=== PATIENT | male | born 1990 | race Caucasian/White ===

== ENCOUNTER 2016-06-16 13:58 | Emergency (ER) | payer OTHER ==
[~2016-06-16] VITALS: Ht 170.2 cm; Wt 68.0 kg
[2016-06-16] MEDS ORDERED: IBUP80TA PO (17:10)
--- NOTE | 2016-06-16 17:47 | REP ---
Scrotal sonography: History: Right testicular pain. Findings: High-resolution bilateral scrotal sonography shows no evidence of intratesticular mass on either side. Right testis measures 4.6 x 2.4 x 2.9 cm. Left testicular dimensions are 4.1 x 1.9 x 2.5 cm. There is a cyst in the epididymis on the left measuring 5 x 6 x 9 mm. Small bilateral hydroceles are seen, left greater than right. Testicular Doppler flow is normal bilaterally. Resistive indices are 0.61 on the right and 0.55 on the left by Doppler. Impression: 9 mm epididymal cyst on the left. No significant sonographic abnormality. Normal Doppler flow bilaterally in the testes. Signed by Alexander Reinoso MD 06/16/2016 06:28 P
[2016-06-16 18:00] VITALS: BP 122/70
== END 2016-06-16 18:15 | disposition home or self-care (01) ==
LOC: M ED 15:51
DX: N50.3 Cyst of epididymis (principal); Z88.8 Allergy status to other drugs, medicaments and biological substances; Z88.1 Allergy status to other antibiotic agents